=== PATIENT | male | born 1985 | race Caucasian/White ===

== ENCOUNTER → 2018-02-06 | Outpatient (CLI) | payer OTHER ==
--- NOTE | 2018-02-06 23:16 | US ---
EXAMINATION TYPE: US carotid duplex BILAT DATE OF EXAM: 02/06/2018 COMPARISON: NONE CLINICAL HISTORY: 32-year-old male R55 SYNCOPE. 3 episodes of syncope and collapse 2 weeks ago TECHNIQUE: Carotid duplex ultrasound examination. Indirect Doppler criteria is utilized. FINDINGS: EXAM MEASUREMENTS: RIGHT: Peak Systolic Velocity (PSV) cm/sec ----- Right CCA: 149.4 ----- Right ICA: 113.2 ----- Right ECA: 118.7 ICA/CCA ratio: 0.8 RIGHT: End Diastole cm/sec ----- Right CCA: 39.1 ----- Right ICA: 33.6 ----- Right ECA: 28.2 LEFT: Peak Systolic Velocity (PSV) cm/sec ----- Left CCA: 131.2 ----- Left ICA: 105.0 ----- Left ECA: 143.7 ICA/CCA ratio: 0.8 LEFT: End Diastole cm/sec ----- Left CCA: 34.7 ----- Left ICA: 39.8 ----- Left ECA: 32.8 VERTEBRALS (direction of flow): Right Vertebral: Antegrade Left Vertebral: Antegrade Rhythm: Normal Elevated velocities: right proximal and distal CCA, left proximal and distal CCA and left proximal EC A, no significant stenosis. IMPRESSION: 1. No hemodynamically significant stenosis appreciated in either internal carotid artery. 2. Mildly elevated velocities in the bilateral common carotid arteries could represent mild or modera te proximal stenoses. Criteria for Assigning % of Stenosis / Diameter reduction (Estimation based on the indirect measurements of the internal carotid artery velocities (ICA PSV). 1. Normal (no stenosis)=ICA PSV < 125 cm/s: ratio < 2.0: ICA EDV<40 cm/s. 2. Less than 50% stenosis=ICA PSV < 125 cm/s: ratio < 2.0: ICA EDV<40 cm/s. 3. 50 to 69% stenosis=ICA PSV of 125 to 230 cm/s: ration 2.0 ? 4.0: ICA EDV 40-100 cm/s. 4. Greater than 70% stenosis to near occlusion= ICA PSV > 230 cm/s: ratio > 4.0: ICA EDV > 100 cm/s. 5. Near occlusion= ICA PSV velocities may be low or undetectable: variable ratio and ICA EDV. 6. Total occlusion=unable to detect flow.
== END ==
LOC: RADUSWWP 15:59
PROVIDERS: ATTEND Family Medicine
DX: R55 Syncope and collapse (principal)
CPT/HCPCS: 93880

== ENCOUNTER → 2018-02-13 | Outpatient (CLI) | payer OTHER ==
--- NOTE | 2018-02-13 17:05 | EEG ---
ELECTROENCEPHALOGRAM REPORT DATE OF SERVICE: 02/13/2018. REASON FOR TESTING: Syncope. DESCRIPTION OF THE PROCEDURE: This EEG was performed using a 21 channel digital electroencephalograph, following international 10-20 system. DESCRIPTION OF THE RECORDING: From the beginning of the tracing, and with patient's eyes closed, the background rhythm was mostly consisting of 9 Hz alpha frequency in the posterior occipital leads. No obvious asymmetry is seen. Hyperventilation was performed with a minimal buildup of amplitude seen. No pathological waves were elicited. Movement artifact and muscle artifacts are seen. Photic stimulation was performed with a minimal driving response seen. No pathological waves were elicited. The patient does reach stage II of sleep during the tracing and occasional sleep spindles are seen. No epileptiform discharges were seen throughout the tracing. His EKG lead showed a regular rate and rhythm. INTERPRETATION: This asleep and awake EEG can be considered within normal limits. There was no asymmetry seen. No epileptiform discharges were noticed. The absence of epileptiform discharges does not rule out the diagnosis of epilepsy; therefore clinical correlation is recommended. Thank you, Dr. Alvarez for allowing me to participate in the care of your patient. If you have any questions, please feel free to contact me. MMODL / IJN: [id number] /
== END | disposition home or self-care (01) ==
LOC: NEUROMAIN 08:49
PROVIDERS: ATTEND Family Medicine
DX: R55 Syncope and collapse (principal)
CPT/HCPCS: 95819

== ENCOUNTER 2018-08-04 23:30 | Inpatient (IN) | payer OTHER ==
[2018-08-04] MEDS ORDERED: SODIUM CHLORIDE 0.9% 1,000 ML IV STA (23:45)
--- NOTE | 2018-08-04 23:46 | ED ---
Syncope HPI - General Chief Complaint: Syncope Stated Complaint: Syncope Time Seen by Provider: 08/04/18 23:31 Source: EMS Mode of arrival: EMS Limitations: no limitations - History of Present Illness Initial Comments: Afshin is a previously healthy 33-year-old gentleman is brought to the emergency department today via EMS for evaluation of a syncopal episode. Patient reports that he had multiple syncopal episodes in the fall he did follow with his primary care physician and had an EEG and ultrasound of his neck which he was told was normal. Patient reports that this evening he did smoke some marijuana, he then went into his home and was sitting on the couch with his watching a movie. Patient reports that he remembers feeling very lightheaded and the next thing he knows his was waking him up. She reports that he was standing on the couch he slumped over she noticed some shaking of his hands and twitching of his eyes but no diffuse movement of his body. She shook him and woke him up. He seemed a little bit confused but was immediately oriented. She became concerned and called 911 for evaluation. She reports he's been told he has a murmur in the past, his youngest daughter also has a murmur he has never had any workup for this. She reports that after undergoing workup in the past for syncope he was told that it was likely due to not eating and his blood sugars going up and down. He reports that he normal diet throughout the day today he went to breakfast with his family, had a small lunch and had [employer] for dinner. - Related Data Allergies Allergy/AdvReac Type Severity Reaction Status Date / Time amoxicillin [From Augmentin] Allergy Rash/Hives Verified 08/04/18 23:40 clavulanic acid Allergy Rash/Hives Verified 08/04/18 23:40 [From Augmentin] Sulfa (Sulfonamide Allergy Rash/Hives Verified 08/04/18 23:40 Antibiotics) Review of Systems ROS Statement: Those systems with pertinent positive or pertinent negative responses have been documented in the HPI. ROS Other: All systems not noted in ROS Statement are negative. Past Medical History Additional Past Medical History / Comment(s): syncope, hypoglycemia, heart murmur History of Any Multi-Drug Resistant Organisms: None Reported Past Surgical History: Tonsillectomy Past Psychological History: No Psychological Hx Reported Smoking Status: Former smoker Past Alcohol Use History: Occasional Past Drug Use History: Marijuana General Exam - General Exam Comments Initial Comments: Physical Exam GENERAL: Patient is well-developed and well-nourished. Patient is nontoxic and well- hydrated and is in no distress. HENT: Normocephalic, Atraumatic. EYES: PERRL, EOMI PULMONARY: Unlabored respirations. No audible rales rhonchi or wheezing was noted. CARDIOVASCULAR: Regular rate and rhythm Harsh systolic murmur ABDOMEN: Soft and nontender with normal bowel sounds. SKIN: Skin is clear with no lesions or rashes and otherwise unremarkable. : Deferred NEUROLOGIC: Patient is alert and oriented x3. Moving all extremities spontaneously MUSCULOSKELETAL: Normal extremities with adequate strength and full range of motion. No lower extremity swelling or edema. No calf tenderness. PSYCHIATRIC: Normal psychiatric evaluation. 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 Medical Decision Making - Medical Decision Making The patient was seen and evaluated history is obtained from the patient, and EMS previously healthy 33-year-old gentleman who presents with recurrent episode of syncope On evaluation the patient does have a systolic murmur he has been told he has a murmur in the past he has never undergone any cardiac evaluation. He did have an ultrasound but believes it was only of his neck. Review of medical record reveals that he had an EEG and carotid Doppler for his previous episodes of syncope but did not undergo any cardiac testing Labs and imaging were ordered Labs and chest x-ray are unremarkable EKG is sinus rhythm without signs of ischemia infarction or arrhythmia This patient is having recurrent episodes of syncope and has a systolic murmur I do feel he would benefit from further evaluation including an echocardiogram and possible evaluation by cardiology. This plan was discussed with the patient and were agreeable to staying in observation unit for further evaluation. Patient care was discussed with Dr. Aguilar of the [facility] [place] [facility] who agr ees with the plan and will admit the patient. - Lab Data Result diagrams: 08/04/18 23:53 08/04/18 23:53 Lab Results 08/04/18 08/04/18 08/04/18 Range/Units 23:53 23:53 23:53 WBC 7.2 (3.8-10.6) k/uL RBC 4.81 (4.30-5.90) m/uL Hgb 14.8 (13.0-17.5) gm/dL Hct 43.6 (39.0-53.0) % MCV 90.8 (80.0-100.0) fL MCH 30.7 (25.0-35.0) pg MCHC 33.8 (31.0-37.0) g/dL RDW 13.4 (11.5-15.5) % Plt Count 215 (150-450) k/uL Neutrophils % 64 % Lymphocytes % 27 % Monocytes % 4 % Eosinophils % 4 % Basophils % 0 % Neutrophils # 4.6 (1.3-7.7) k/uL Lymphocytes # 2.0 (1.0-4.8) k/uL Monocytes # 0.3 (0-1.0) k/uL Eosinophils # 0.3 (0-0.7) k/uL Basophils # 0.0 (0-0.2) k/uL Sodium 141 (137-145) mmol/L Potassium 3.8 (3.5-5.1) mmol/L Chloride 107 (98-107) mmol/L Carbon Dioxide 26 (22-30) mmol/L Anion Gap 8 mmol/L BUN 18 (9-20) mg/dL Creatinine 1.04 (0.66-1.25) mg/dL Est GFR (CKD-EPI)AfAm >90 (>60 ml/min/1.73 sqM) Est GFR (CKD-EPI)NonAf >90 (>60 ml/min/1.73 sqM) Glucose 142 H (74-99) mg/dL Calcium 9.5 (8.4-10.2) mg/dL Total Bilirubin 0.6 (0.2-1.3) mg/dL AST 22 (17-59) U/L ALT 55 (21-72) U/L Alkaline Phosphatase 61 (38-126) U/L Troponin I <0.012 (0.000-0.034) ng/mL Total Protein 7.3 (6.3-8.2) g/dL Albumin 4.4 (3.5-5.0) g/dL Disposition Clinical Impression: Fainting spell, Systolic murmur Disposition: ADMITTED IP TO THIS [facility] Condition: Stable Referrals: Yonathan Alvarez MD [Primary Care Provider] - 1-2 days
[2018-08-05 00:03] LABS: Basophils % (A) 0 %; Eosinophils # (A) 0.3 k/uL (0-0.7); Eosinophils % (A) 4 %; HCT 43.6 % (39.0-53.0); HGB 14.8 gm/dL (13.0-17.5); Lymphocytes % (A) 27 %; MCH 30.7 pg (25.0-35.0); MCHC 33.8 g/dL (31.0-37.0); MCV 90.8 fL (80.0-100.0); Mean Platelet Volume 6.9; Monocytes # (A) 0.3 k/uL (0-1.0); Monocytes % (A) 4 %; Neutrophils # (A) 4.6 k/uL (1.3-7.7); Neutrophils % (A) 64 %; Platelet Count 215 k/uL (150-450); RBC 4.81 m/uL (4.30-5.90); RDW 13.4 % (11.5-15.5); WBC 7.2 k/uL (3.8-10.6)
[2018-08-05 00:11] LABS: ALT 55 U/L (21-72); AST 22 U/L (17-59); Albumin 4.4 g/dL (3.5-5.0); Alkaline Phosphatase 61 U/L (38-126); Anion Gap 8 mmol/L; Blood Urea Nitrogen 18 mg/dL (9-20); Calcium 9.5 mg/dL (8.4-10.2); Carbon Dioxide 26 mmol/L (22-30); Chloride 107 mmol/L (98-107); Glucose 142 mg/dL (74-99); Potassium 3.8 mmol/L (3.5-5.1); Sodium 141 mmol/L (137-145); Total Bilirubin 0.6 mg/dL (0.2-1.3); Total Protein 7.3 g/dL (6.3-8.2)
--- NOTE | 2018-08-05 00:11 | XR ---
EXAM: XR Chest, 2 Views CLINICAL HISTORY: ITS.REASON XR Reason: syncope TECHNIQUE: Frontal and lateral views of the chest. COMPARISON: No relevant prior studies available. FINDINGS: Hypoventilated chest. Cardiac silhouette likely upper limits normal size allowing for technique. No evidence for consolidation, edema or other acute cardiopulmonary process. IMPRESSION: Hypoventilated chest without cardiopulmonary findings.
[2018-08-05] MEDS ORDERED: NALOXONE 0.4 MG/ML 1 ML VIAL IV PRN (01:00)
[2018-08-05] MEDS ORDERED: ACETAMINOPHEN TAB 325 MG TAB PO PRN (02:15)
--- NOTE | 2018-08-05 09:51 | P.CRDCN ---
History of Present Illness History of present illness: This is a pleasant 33-year-old male with no significant past medical history. He states he has had frequent episodes of passing out and the previous 15 years and has been worked up as an outpatient with no definitive diagnosis. Most recently yesterday evening while sitting on the couch watching television with his he states he felt his heart racing very rapidly but regular then started seeing yellow and then briefly loses consciousness. He states that he can hear his calling his name but he is unable to answer. Per the his eyes are closed his hands are pulled close to his chest and he has shaking his arms. There is no significant shaking of his body or had just the arms and hands. She states his eyes were rolling back and has had a PE is essentially unresponsive. He denies any symptoms of chest discomfort, shortness of breath, dizziness, room spinning, nausea, vomiting or diaphoresis. He states his episodes in the past have been similar. He has undergone an EEG in 2018 that was negative, bilateral carotid duplex in 2018 revealed no evidence of significant stenosis with mildly elevated velocities bilaterally. He does smoke marijuana daily and states these events seem to occur shortly after smoking. He recently wore a event monitor for 1 week with his primary care physician that he was told was unremarkable. EKG on arrival reveals sinus mechanism with no acute ST or T wave abnormalities noted. Telemetry tracings have been unremarkable. Chest x-ray is negative for an acute cardiopulmonary process. Laboratory data reviewed and is overall unremarkable. Cardiac enzymes negative 1. He takes no daily cardiac medications. At the time of my exam: CONSTITUTIONAL: Denies fever. Denies chills. EYES: Denies blurred vision. Denies vision changes. Denies eye pain. EARS, NOSE, MOUTH & THROAT: Denies headache. Denies sore throat. Denies ear pain. CARDIOVASCULAR: Denies chest pain. Denies shortness of breath. Denies orthopnea. Denies PND. Denies palpitations. RESPIRATORY: Denies cough. GASTROINTESTINAL: Denies abdominal pain. Denies diarrhea. Denies constipation. Denies nausea. Denies vomiting. MUSCULOSKELETAL: Denies myalgias. INTEGUMENTARY: Denies pruitis. Denies rash. NEUROLOGIC: Denies numbness. Denies tingling. Denies weakness. PSYCHIATRIC: Denies anxiety. Denies depression. ENDOCRINE: Denies fatigue. Denies weight change. Denies polydipsia. Denies polyurina. GENITOURINARY: Denies burning, hematuria or urgency with micturation. HEMATOLOGIC: Denies history of anemia. Denies bleeding. Blood pressure 154/90 heart rate 80 afebrile maintaining oxygen saturation on room air GENERAL: This is a 33-year-old male in no apparent distress at the time of my examination. HEENT: Head is atraumatic, normocephalic. Pupils are equal, round. Sclerae anicteric. Conjunctivae are clear. Mucous membranes of the mouth are moist. Neck is supple. There is no jugular venous distention. No carotid bruit is heard. LUNGS: Clear to auscultation no wheezes, rales or rhonchi. No chest wall tenderness is noted on palpation or with deep breathing. HEART: Regular rate and rhythm without murmurs, rubs or gallops. S1 and S2 heard. ABDOMEN: Soft, nontender. Bowel sounds are heard. No organomegaly noted. EXTREMITIES: No evidence of peripheral edema and no calf tenderness noted. VASCULAR: Radial and dorsalis pedis pulses palpated, no evidence of clubbing. NEUROLOGIC: Patient is awake, alert and oriented x3. ASSESSMENT Syncope preceded by palpitations shortly after smoking marijuana Systolic murmur PLAN Obtain 2-D echocardiogram and Doppler study to assess cardiac structure and function specifically the aortic valve. Check another troponin and TSH. Marijuana cessation strongly recommended. Further neurologic work-up per primary care team, consider possibly brain CT. Also advised him close follow up with a neurologist as his symptoms sound more likely to be related to a neurologic event. Thank you kindly for this consultation. Nurse Practitioner note has been reviewed, I agree with a documented findings and plan of care. Patient was seen and examined. Past Medical History Additional Past Medical History / Comment(s): syncope, hypoglycemia, heart murmur History of Any Multi-Drug Resistant Organisms: None Reported Past Surgical History: Tonsillectomy Past Psychological History: No Psychological Hx Reported Smoking Status: Former smoker Past Alcohol Use History: Occasional Past Drug Use History: Marijuana Medications and Allergies Home Medications Medication Instructions Recorded Confirmed Type No Known Home Medications 08/05/18 08/05/18 History Allergies Allergy/AdvReac Type Severity Reaction Status Date / Time amoxicillin [From Augmentin] Allergy Rash/Hives Verified 08/05/18 07:06 clavulanic acid Allergy Rash/Hives Verified 08/05/18 07:06 [From Augmentin] Sulfa (Sulfonamide Allergy Rash/Hives Verified 08/05/18 07:06 Antibiotics) Physical Exam Vitals: Vital Signs Temp Pulse Pulse Resp BP BP Pulse Ox 08/05/18 07:38 98.4 F 80 15 154/90 98 08/05/18 06:50 83 20 135/73 98 08/05/18 06:00 67 20 113/67 97 08/05/18 05:00 68 18 122/68 97 08/05/18 04:00 66 18 110/61 97 08/05/18 03:00 71 16 108/68 98 08/05/18 00:39 98 F 70 20 116/69 98 08/05/18 00:24 77 08/04/18 23:34 98.9 F 77 20 147/79 97 Intake and Output 08/04/18 08/05/18 08/05/18 22:59 06:59 14:59 Other: Weight 105.687 kg Results 08/04/18 23:53 08/04/18 23:53 Cardiac Enzymes 08/04/18 08/04/18 Range/Units 23:53 23:53 AST 22 (17-59) U/L Troponin I <0.012 (0.000-0.034) ng/mL CBC 08/04/18 Range/Units 23:53 WBC 7.2 (3.8-10.6) k/uL RBC 4.81 (4.30-5.90) m/uL Hgb 14.8 (13.0-17.5) gm/dL Hct 43.6 (39.0-53.0) % Plt Count 215 (150-450) k/uL Comprehensive Metabolic Panel 08/04/18 Range/Units 23:53 Sodium 141 (137-145) mmol/L Potassium 3.8 (3.5-5.1) mmol/L Chloride 107 (98-107) mmol/L Carbon Dioxide 26 (22-30) mmol/L BUN 18 (9-20) mg/dL Creatinine 1.04 (0.66-1.25) mg/dL Glucose 142 H (74-99) mg/dL Calcium 9.5 (8.4-10.2) mg/dL AST 22 (17-59) U/L ALT 55 (21-72) U/L Alkaline Phosphatase 61 (38-126) U/L Total Protein 7.3 (6.3-8.2) g/dL Albumin 4.4 (3.5-5.0) g/dL Current Medications Generic Name Dose Route Start Last Admin Trade Name Freq PRN Reason Stop Dose Admin Acetaminophen 650 mg 08/05/18 02:15 Tylenol Tab PO Q6HR PRN Mild Pain or Fever > 100.5 Naloxone HCl 0.2 mg 08/05/18 01:00 Narcan IV Q2M PRN Opioid Reversal Intake and Output 08/04/18 08/05/18 08/05/18 22:59 06:59 14:59 Other: Weight 105.687 kg 08/04/18 23:53 08/04/18 23:53
--- NOTE | 2018-08-05 12:19 | ECHOF ---
Referral Reason:syncope MEASUREMENTS -------- HEIGHT: 175.3 cm WEIGHT: 105.7 kg BP: RVIDd: 3.5 cm (< 3.3) IVSd: 1.5 cm (0.6 - 1.1) LVIDd: 4.6 cm (3.9 - 5.3) LVPWd: 1.5 cm (0.6 - 1.1) IVSs: 2.0 cm LVIDs: 2.9 cm LVPWs: 1.8 cm LA Diam: 3.4 cm (2.7 - 3.8) Ao Diam: 3.1 cm (2.0 - 3.7) AV Cusp: 1.9 cm (1.5 - 2.6) LA Diam: 4.0 cm (2.7 - 3.8) MV EXCURSION: 17.701 mm (> 18.000) MV EF SLOPE: 81 mm/s (70 - 150) EPSS: 0.2 cm MV E David: 1.06 m/s MV DecT: 174 ms MV A David: 0.75 m/s MV E/A Ratio: 1.41 AV maxP.78 mmHg AV meanP.14 mmHg RAP: 5.00 mmHg RVSP: 35.82 mmHg FINDINGS -------- Sinus rhythm. This was a technically adequate study. The left ventricular size is normal. There is moderate concentric left ventricular hypertrophy with increased septal thickness. Overall left ventricular systolic function is normal with, an EF betwee n 55 - 60 %. Lvot Obstruction with max Pg of 51.68mmHg & Lvot meanPg of 23.60mmHg. The right ventricle is normal in size. The left atrial size is normal. The right atrial size is normal. There is mild aortic valve sclerosis. There is no evidence of aortic regurgitation. Mild mitral annular calcification present. Mild mitral regurgitation is present. Probable Chordal S AM. Mild tricuspid regurgitation present. There is mild pulmonary hypertension. The right ventricular systolic pressure, as measured by Doppler, is 35.82mmHg. There is no pulmonic regurgitation present. The aortic root size is normal. There is no pericardial effusion. CONCLUSIONS -------- 1. The left ventricular size is normal. 2. There is moderate concentric left ventricular hypertrophy. 3. Overall left ventricular systolic function is normal with, an EF between 55 - 60 %. 4. Lvot Obstruction with max Pg of 51.68mmHg & Lvot meanPg of 23.60mmHg. 5. The right ventricle is normal in size. 6. The left atrial size is normal. 7. The right atrial size is normal. 8. There is mild aortic valve sclerosis. 9. Mild mitral annular calcification present. 10. Mild mitral regurgitation is present. 11. Mild tricuspid regurgitation present. 12. There is mild pulmonary hypertension. 13. The right ventricular systolic pressure, as measured by Doppler, is 35.82mmHg. 14. There is no pulmonic regurgitation present. 15. The aortic root size is normal. 16. There is no pericardial effusion. ACCOUNT SUPPORT ANALYST: Rosanne Santoyo RDCS
[2018-08-05] MEDS ORDERED: METOPROLOL TARTRATE 25 MG TAB PO SCH (13:00)
--- NOTE | 2018-08-05 22:25 | HP ---
HISTORY AND PHYSICAL DATE OF ADMISSION: 08/05/2018 DATE OF SERVICE: 08/05/2018 PRESENTING COMPLAINT: Decreased responsive episode. HISTORY OF PRESENTING COMPLAINT: A very pleasant 33-year-old patient who follows with Dr. Alvarez. The patient has presented with episode of newer decreased responsiveness. He said he had 1 of these episodes when he was 17 years old, then when he was about 25 or 26 years old, had a similar episode last December and the 1 last night, he presented here. The patient lives with his . The patient had gone out to smoke his regular marijuana. Normally does about 1 or 2 joints, came back in the house and sat down with his to watch television and then he felt his head pounding. Then he felt his heart racing and he just started staring off. Eyes still open. Patient then broke out into heavy cold sweat. Both the hands were twitching. Patient started making a gurgling noise. Eyes became inwards and patient was shaking a bit. The patient head went to 1 side. The patient became pale and mas. Hence patient was brought in. 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 The patient did have a EEG last year by Dr. Pandya that was unremarkable. Carotid Doppler was also done. Otherwise, patient is very active and in good health. REVIEW OF SYSTEMS: CONSTITUTIONAL: None. HEENT: None. CARDIOVASCULAR: As above. GASTROINTESTINAL: None. GENITOURINARY: None. MUSCULOSKELETAL: None. Dermatological, hematologic, lymphatic none. PSYCHIATRY: None. NEUROLOGICAL: As above. PAST MEDICAL HISTORY: Heart murmur. PAST SURGICAL HISTORY: Tonsillectomy. SOCIAL HISTORY: with 2 children. 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 Patient does drink half pint of liquor. A couple of beers a day. Has not done that for some time. Smokes 2 joints a day. FAMILY HISTORY: Coronary artery disease with questionable family history of cardiomyopathy. HOME MEDICATIONS: None. ALLERGIES: AUGMENTIN. PHYSICAL EXAMINATION: VITAL SIGNS: Temperature 98.4, pulse 62, respiratory rate 15, blood pressure 154/90, pulse ox 98% on room air. No orthostatics. GENERAL APPEARANCE: Well built. BMI 34.4. Sitting up, comfortable. EYES: Pupils equal. Conjunctivae normal. HEENT: External appearance of nose and ears normal. Oral cavity normal. NECK: JVD not raised. Mass not palpable. RESPIRATORY: Effort normal. LUNGS are clear. CARDIOVASCULAR: First and second sounds normal. No edema. ABDOMEN: Soft, nontender. Liver and spleen not palpable. LYMPHATICS: No lymph nodes palpable in the neck or axilla. PSYCHIATRY: Alert and oriented x3. Mood and affect normal. NEUROLOGICAL: Pupils equal. Cranial nerves grossly intact. Power and sensation grossly intact. INVESTIGATIONS: White count 6.2, hemoglobin 14.8, potassium 3.8. BUN and creatinine is normal. Troponin times two negative. TSH 1.2. EKG tracing personally reviewed by me shows normal sinus rhythm. Chest x-ray film personally reviewed by me shows borderline cardiomegaly. Lung jin are clear. 2D echocardiogram shows moderate concentric left ventricular hypertrophy. Left ventricular outflow obstruction. ASSESSMENT: 1. This is a patient who presents with this episode with some features suggestive of cardiac cause. Other features suggestive for neurological cause. The patient had 1 EEG was negative. 2. Rule out seizure disorder. 3. Rule out dysthymia. 4. 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 5. Obesity BMI 34. 6. Recreational marijuana use. PLAN: Discussed with Lesley from Cardiology. Patient will have a NINA tomorrow. The patient may also at least need the event monitor, but the patient's events are so sporadic that the patient may end up getting a loop recorder. The patient advised against use of any recreational medications including marijuana. Care was discussed with the patient and . Follow with Cardiology. Copy to Dr. Alvarez. MMOMIDL / SUSANNEN: [id number] /
[2018-08-06] MEDS ORDERED: METOPROLOL TARTRATE 25 MG TAB PO SCH (09:00)
--- NOTE | 2018-08-06 09:11 | EEG ---
ELECTROENCEPHALOGRAM REPORT PROCEDURE DATE: 08/05/2018. ELECTROENCEPHALOGRAM (EEG) REPORT: TECHNIQUE: A routine 18 channel EEG was performed with video using the 10/20 international placement system. HISTORY: Syncope. CURRENT MEDICATIONS: Metoprolol, Tylenol. STUDY DURATION: 22 minutes. FINDINGS: BACKGROUND: The background activity consists of 8-9 hertz rhythmic waveforms symmetrically seen over both posterior quadrants. ACTIVATION: Hyperventilation: Not performed. Photic stimulation: Symmetric driving seen. Sleep: Stages 1 and 2 sleep noted. ABNORMALITIES: None. IMPRESSION: Normal EEG. No epileptiform activity was present. No seizures were recorded. These findings were called to the patient's nurse at 9:49 pm on 08/05/2018. MMODL / IJN: [id number] /
[2018-08-06] MEDS ORDERED: fentaNYL (PF) 50 MCG/ML 2 ML AMP ONE (11:36)
[2018-08-06] MEDS ORDERED: SODIUM CHLORIDE 0.9% 500 ML 500 ML IV ONE (12:02)
[2018-08-06] MEDS: BENZOCAINE SPRAY 1 CAN MUCOUS MEM ONE ×2 (12:02→12:11)
[2018-08-06] MEDS ORDERED: MIDAZOLAM 2 MG/2 ML VIAL IVP ONE (12:08)
[2018-08-06] MEDS ORDERED: fentaNYL (PF) 50 MCG/ML 2 ML AMP IV ONE (12:08)
[2018-08-06] MEDS: MIDAZOLAM 2 MG/2 ML VIAL IVP ONE ×2 (12:13→12:15)
--- NOTE | 2018-08-06 13:05 | ECHOT ---
TRANSESOPHAGEAL ECHOCARDIOGRAM This transesophageal echocardiogram was performed to evaluate the patient's hypertrophic cardiomyopathy. Patient was given intravenous sedation Versed and fentanyl and transesophageal echocardiogram was performed without any complications. FINDINGS: Left ventricular chamber is normal in size. There is asymmetrical hypertrophy of the interventricular septum which measures 1.7 to 1.9 cm. There is a mild degree of concentric hypertrophy of the rest of the left ventricular wall. The mitral valve morphology is normal and there is evidence of systolic anterior motion of the mitral leaflet. There is evidence of turbulent flow in the left ventricular outflow tract. The peak gradient of about only 16 to 18 mmHg was noted. There is evidence of mild mitral regurgitation. Left atrial appendage is clear. Pulmonary vein flow is normal. Tricuspid valve is normal. Interatrial septum is intact. There is no evidence of PFO by saline contrast study. FINAL IMPRESSION: 1. This study shows evidence of hypertrophic cardiomyopathy with asymmetrical hypertrophy of the interventricular septum which measures between 1.7 to 1.9 cm. The rest of the left ventricular wall also shows mild degree of concentric left ventricular hypertrophy. 2. There is evidence of systolic anterior motion of the anterior mitral leaflet. 3. There is evidence of turbulent flow in the left ventricular outflow tract with evidence of peak gradient of 16 to 18 mmHg was noted. 4. There is a mild mitral regurgitation is noted. 5. Interatrial septum is intact. There is no evidence of any patent foramen ovale. MMODL / IJN: [id number] /
--- NOTE | 2018-08-06 14:30 | P.PN ---
Subjective This is a pleasant 33-year-old male with no significant past medical history. He is seen and examined resting comfortably laying flat in bed recovering from his NINA. NINA revealed hypertrophic cardiomyopathy with asymmetrical hypertrophy of the intraventricular septum which measures 1.7-1.9 cm, evidence of systolic anterior motion of the anterior mitral leaflet, turbulent flow in the left ventricle also tract with gradient of 16-18 mmHg. There is no patent patent foramen ovale. Blood pressures have been stable since NINA procedure. He's had no symptoms of chest discomfort, shortness of breath, dizziness or palpitations. Telemetry tracings have been unremarkable. He has had no further events of syncope. GENERAL: This is a 33-year-old male in no apparent distress at the time of my examination. HEENT: Head is atraumatic, normocephalic. Pupils are equal, round. Sclerae anicteric. Conjunctivae are clear. Mucous membranes of the mouth are moist. Neck is supple. There is no jugular venous distention. No carotid bruit is heard. LUNGS: Clear to auscultation no wheezes, rales or rhonchi. No chest wall tenderness is noted on palpation or with deep breathing. HEART: Regular rate and rhythm with systolic ejection murmur at the base, no rubs or gallops. S1 and S2 heard. EXTREMITIES: No evidence of peripheral edema and no calf tenderness noted. ASSESSMENT Syncope preceded by palpitations shortly after smoking marijuana Systolic murmur Hypertrophic cardiomyopathy with ROSEY Systolic anterior motion of the mitral leaflet PLAN Diagnosis and plan has been discussed in great detail with the patient and his . He will follow up with Dr. Cullen in the office in 1 week for genetic testing, cardiac MRI and stress testing. He is stable for discharge home on lopressor 25 mg BID. Nurse Practitioner note has been reviewed, I agree with a documented findings and plan of care. Patient was seen and examined. Objective - Vital Signs Vital signs: Vital Signs Temp 97.4 F L 08/06/18 12:40 Pulse 55 L 08/06/18 13:25 Resp 16 08/06/18 12:40 BP 99/61 08/06/18 13:25 Pulse Ox 95 08/06/18 13:25 Intake & Output 08/05/18 08/06/18 08/06/18 18:59 06:59 18:59 Intake Total 600 1160 Balance 600 1160 Intake: IV 200 Oral 600 960 Other: Voiding Method Toilet Toilet Toilet # Voids 1 1 3 - Labs CBC & Chem 7: 08/04/18 23:53 08/04/18 23:53
[2018-08-06 15:57] VITALS: BP 120/63; PULSE 65; RESP 18; TEMP 98.1
== END 2018-08-06 17:10 | disposition home or self-care (01) | DRG 316 ==
LOC: EC 23:30 → 1SOBS 08-05 01:01 → OBSVTOIN 08-06 15:11
PROVIDERS: ADMIT Hospitalist; ATTEND Hospitalist
PROC: B246ZZ4 Ultrasonography of Right and Left Heart, Transesophageal (ICD-10-PCS; principal; 2018-08-06 12:00)
DX: I42.2 Other hypertrophic cardiomyopathy (principal); I34.0 Nonrheumatic mitral (valve) insufficiency; E66.9 Obesity, unspecified; Z68.34 Body mass index [BMI] 34.0-34.9, adult; Z87.891 Personal history of nicotine dependence; Z88.0 Allergy status to penicillin; Z88.2 Allergy status to sulfonamides; Z82.49 Family history of ischemic heart disease and other diseases of the circulatory system
CPT/HCPCS: 36415; 71046; 80053; 84443; 84484; 85025; 93005; 93306; 93312; 93320; 93325; 95819; 96360; 99285

== ENCOUNTER 2019-06-04 10:18 | Day surgery (SDC) | payer OTHER ==
[2019-06-02 10:34] VITALS: BMI 33.2
[~2019-06-04 10:18] MED LIST: LACTATED RINGERS 1,000 ML IV SCH; LIDOCAINE 1% 20 ML VIAL (10MG/ML) FOR IV START INTRADERMA PRN
[2019-06-04 10:37] VITALS: TEMP 98.6
[2019-06-04] MEDS ORDERED: PROPOFOL 10 MG/ML 20 ML VIAL IV ONE (12:37)
--- NOTE | 2019-06-04 12:39 | P.GSHP ---
History of Present Illness H&P Date: 06/04/19 Chief Complaint: Rectal bleeding Patient here today for colonoscopy. Patient has had rectal bleeding intermittently over the last 8 years or so. Denies abdominal pain. Darker at times. No constipation or diarrhea. No family history of colon cancer. Past Medical History Past Medical History: GI Bleed, Hypertension, Sleep Apnea/CPAP/BIPAP, Syncope Additional Past Medical History / Comment(s): hX heart murmur, "hypertrophic cardiomyopathy," uses CPAP. Hx blood in stool History of Any Multi-Drug Resistant Organisms: None Reported Past Surgical History: Adenoidectomy, Tonsillectomy Past Anesthesia/Blood Transfusion Reactions: No Reported Reaction Smoking Status: Never smoker - Past Family History Father Additional Family Medical History / Comment(s): Pt is unsure if his father is really his biological father. This gentleman had syncope as a teen. Another man, who pt thinks might really be his father has cardiomyopathy. Mother Family Medical History: Cancer, Coronary Artery Disease (CAD) Additional Family Medical History / Comment(s): Mother was a smoker. She of lung cancer at the age of 55yrs. She also had CAD. Medications and Allergies Home Medications Medication Instructions Recorded Confirmed Type Metoprolol Tartrate [Lopressor] 50 mg PO DAILY 06/02/19 06/02/19 History Valsartan [Diovan] 160 mg PO DAILY 06/02/19 06/02/19 History Allergies Allergy/AdvReac Type Severity Reaction Status Date / Time amoxicillin [From Augmentin] Allergy Rash/Hives Verified 06/04/19 10:34 clavulanic acid Allergy Rash/Hives Verified 06/04/19 10:34 [From Augmentin] Sulfa (Sulfonamide Allergy Rash/Hives Verified 06/04/19 10:34 Antibiotics) Surgical - Exam Vital Signs Temp Pulse Resp BP Pulse Ox 98.6 F 69 17 127/74 98 06/04/19 10:37 06/04/19 10:37 06/04/19 10:37 06/04/19 10:37 06/04/19 10:37 Physical exam: General: Well-developed, well-nourished HEENT: Normocephalic, sclerae nonicteric Abdomen: Nontender, nondistended Extremities: No edema Neuro: Alert and oriented Assessment and Plan (1) Rectal bleeding Current Visit: Yes Status: Acute Code(s): K62.5 - HEMORRHAGE OF ANUS AND RECTUM SNOMED Code(s): 49860885
--- NOTE | 2019-06-04 12:53 | P.PCN ---
Date of Procedure: 06/04/19 Procedure(s) Performed: PREOPERATIVE DIAGNOSIS: Rectal bleeding POSTOPERATIVE DIAGNOSIS: Normal exam PROCEDURE: Colonoscopy ANESTHESIA: MAC SURGEON: Felix Smith M.D. SPECIMENS: None ENDOSCOPIC PROCEDURE: The patient was placed on the endoscopy table in the left decubitus position. The Olympus colonoscope was inserted into the anus and passed under direct visualization to the base of the cecum. The appendiceal orifice was visualized. From that point the scope was slowly withdrawn inspecting all surfaces carefully. There were no neoplastic inflammatory or polypoid lesions throughout the cecum, ascending, transverse, descending, sigmoid and rectum. There was no visible diverticulosis noted. Retroflexion at the anus showed no significant hemorrhoidal disease. On digital rectal examination there was noted to be some induration/scarring anteriorly midline 6 possible old anal fissure. The patient was taken to the recovery room in stable condition per anesthesia guidelines. RECOMMENDATIONS: Increase dietary fiber. Monitor for recurrent bleeding.
[2019-06-04 13:04] VITALS: RESP 18
[2019-06-04 13:23] VITALS: BP 108/71; PULSE 65
== END 2019-06-04 13:33 | disposition home or self-care (01) ==
LOC: ORWHC2ENDO 10:18
PROVIDERS: ATTEND Surgery
DX: K62.5 Hemorrhage of anus and rectum (principal); L90.5 Scar conditions and fibrosis of skin; I10 Essential (primary) hypertension; G47.30 Sleep apnea, unspecified; Z99.89 Dependence on other enabling machines and devices; I42.2 Other hypertrophic cardiomyopathy; Z90.89 Acquired absence of other organs; Z80.1 Family history of malignant neoplasm of trachea, bronchus and lung; Z82.49 Family history of ischemic heart disease and other diseases of the circulatory system; Z79.899 Other long term (current) drug therapy; Z88.0 Allergy status to penicillin; Z88.1 Allergy status to other antibiotic agents; Z88.2 Allergy status to sulfonamides
CPT/HCPCS: 45378; J2704